=== PATIENT | female | born 1970 | race Caucasian/White ===

== ENCOUNTER → 2016-12-21 | Outpatient (CLI) | payer MEDICAID | END | disposition home or self-care (01) | LOC: RAD.S 10:23 | DX: M79.662 Pain in left lower leg (principal) ==

== ENCOUNTER → 2017-02-13 | Outpatient (CLI) | payer MEDICAID | END | disposition home or self-care (01) | LOC: RAD.S 07:50 | DX: C53.0 Malignant neoplasm of endocervix (principal) ==